=== PATIENT | female | born 1970 | race Caucasian/White ===

== ENCOUNTER → 2023-12-29 11:47 | Outpatient (REF) | payer OTHER, SELFPAY ==
[2023-12-29 13:18] LABS: Rubella Positive
[2023-12-29 13:50] LABS: Hepatitis B Surface Antibody Negative
[2023-12-31 11:56] LABS: Quantiferon Mitogen minus NIL 7.14 IU/mL; Quantiferon TB Gold Plus Negative (Negative)
== END ==
LOC: OHS 11:47
PROVIDERS: ATTENDING PHYSICIAN Nurse Practitioner Family
DX: Z23 Encounter for immunization (principal)
CPT/HCPCS: 36415; 86480; 86706; 86735; 86762; 86765; 86787